=== PATIENT | male | born 1980 | race Caucasian/White ===

== ENCOUNTER 2016-05-26 11:04 | Emergency (ER) | payer OTHER ==
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
== END 2016-05-26 13:59 | disposition home or self-care (01) ==
LOC: ER 11:04
DX: S16.1XXA Strain of muscle, fascia and tendon at neck level, initial encounter (principal); S00.93XA Contusion of unspecified part of head, initial encounter; V89.2XXA Person injured in unspecified motor-vehicle accident, traffic, initial encounter; Y93.89 Activity, other specified; Y92.488 Other paved roadways as the place of occurrence of the external cause; Y99.8 Other external cause status
CPT/HCPCS: 99284; 96372; 70250; 72040; J1885; Z7502